=== PATIENT | male | born 1965 | race Caucasian/White ===

== ENCOUNTER 2017-10-25 08:48 | Day surgery (SDC) | payer BC ==
[~2017-10-25] VITALS: Ht 172.7 cm; Wt 75.0 kg
[~2017-10-25 08:48] MED LIST: CLARITIN-D 121 EACH PO; NASACORT10.8 ML INH
== END 2017-10-25 10:51 | disposition home or self-care (01) ==
LOC: ORSCSDS 08:48
PROVIDERS: Internal Medicine Gastroenterology
PROC: 0DBM8ZX Excision of Descending Colon, Via Natural or Artificial Opening Endoscopic, Diagnostic (ICD-10-PCS; principal; 2017-10-25 10:00)
DX: Z12.11 Encounter for screening for malignant neoplasm of colon (principal); D12.4 Benign neoplasm of descending colon; Z87.891 Personal history of nicotine dependence
CPT/HCPCS: 88305; J7120

== ENCOUNTER → 2021-08-09 | Outpatient (CLI) | payer BC ==
[~2021-08-09] MED LIST changes: +ALLEGRA ALLERG180 MG PO; +AMOCLA875 PO; +Norco 5-325 Ta1 EACH PO; +Percocet 5-3251 EACH PO
[2021-08-09 14:20] LABS: Alanine Aminotransfer (ALT/SGP 32 U/L (12-78); Albumin, Blood 3.6 g/dL (3.4-5.0); Albumin/Globulin Ratio 0.9 (0.8-1.8); Alk Phos 79 U/L (50-136); Anion Gap 6 mmol/L (6-16); Aspartate Aminotrans (AST/SGOT 22 U/L (12-37); Bilirubin, Total 0.5 mg/dL (0.1-1.0); Blood Urea Nitrogen 14 mg/dL (8-24); Bun/Creatinine Ratio 14.8 (12.0-20.0); CHOL/HDL RATIO 3.5; CO2, Blood 30 mmol/L (21-32); Calcium, Blood 9.4 mg/dL (8.5-10.1); Chloride, Blood 104 mmol/L (98-108); Cholesterol 227 mg/dL (50-200); Creatinine, Blood 0.95 mg/dL (0.60-1.20); Globulin, Blood 4.1 g/dL (2.2-4.0); Glomerular Filtration Rate >60 (60-); Glucose, Blood 90 mg/dL (70-99); HDL Cholesterol 65 mg/dL (>39); LDL/HDL RATIO 2.2; Low Density Lipoprotein Chol 141 mg/dL (0-110); Potassium, Blood 4.3 mmol/L (3.5-5.5); Sodium, Blood 140 mmol/L (136-145); Total Protein, Blood 7.7 g/dL (6.4-8.2); Triglycerides 105 mg/dL (30-160); Very Low Density Lipoprot Chol 21 mg/dL (6-32)
== END ==
LOC: LAB SHORT 09:00
PROVIDERS: Hospitalist
DX: Z00.00 Encounter for general adult medical examination without abnormal findings (principal)
CPT/HCPCS: 80053; 80061; G0103

== ENCOUNTER 2024-11-04 11:20 | Day surgery (SDC) | payer BC ==
[~2024-11-04] VITALS: Ht 170.2 cm; Wt 75.1 kg
[~2024-11-04 11:20] MED LIST changes: +Lactated Ringer's 1,000 ML IV ONE; +propofoL 50 ML IV ONE
[2024-11-04] MEDS ORDERED: Lactated Ringer's 1,000 ML IV ONE (12:52)
[2024-11-04 14:14] VITALS: BP 101/82
== END 2024-11-04 14:05 | disposition home or self-care (01) ==
LOC: ORSCSDS 11:20
PROVIDERS: Internal Medicine Gastroenterology
PROC: 0DJD8ZZ Inspection of Lower Intestinal Tract, Via Natural or Artificial Opening Endoscopic (ICD-10-PCS; principal; 2024-11-04 12:45)
DX: Z12.11 Encounter for screening for malignant neoplasm of colon (principal); Z86.0101 Personal history of adenomatous and serrated colon polyps; K57.30 Diverticulosis of large intestine without perforation or abscess without bleeding
CPT/HCPCS: J2704; J7120

== ENCOUNTER → 2025-06-17 | Outpatient (CLI) | payer BC ==
[~2025-06-17] MED LIST changes: -Lactated Ringer's 1,000 ML IV ONE; -propofoL 50 ML IV ONE
[2025-06-17 22:45] LABS: Anion Gap 8 mmol/L (3-11); Blood Urea Nitrogen 16 mg/dL (8-24); CHOL/HDL RATIO 3.5; CO2, Blood 28 mmol/L (21-32); Calcium, Blood 9.2 mg/dL (8.5-10.1); Chloride, Blood 106 mmol/L (98-108); Cholesterol 239 mg/dL (50-200); Creatinine, Blood 1.12 mg/dL (0.60-1.20); Glucose, Blood 97 mg/dL (70-99); HDL Cholesterol 69 mg/dL (>39); LDL/HDL RATIO 2.1; Low Density Lipoprotein Chol 147 mg/dL (0-110); Potassium, Blood 4.2 mmol/L (3.5-5.5); Sodium, Blood 138 mmol/L (136-145); Triglycerides 114 mg/dL (30-160); Very Low Density Lipoprot Chol 22 mg/dL (6-32)
== END ==
LOC: LAB 09:10 → LAB SHORT 09:10
PROVIDERS: Hospitalist
DX: E78.00 Pure hypercholesterolemia, unspecified (principal); I10 Essential (primary) hypertension
CPT/HCPCS: 80048; 80061